=== PATIENT | male | born 1970 ===

== ENCOUNTER 2017-11-20 08:31 | Emergency (ER) | payer OTHER ==
[2017-11-20 08:43] VITALS: RESP 16
[2017-11-20] MEDS ORDERED: Sodium Chloride 0.9% 1,000 ML IV ONE (08:56)
--- NOTE | 2017-11-20 08:56 | C.PDOC ---
History Of Present Illness 47 yo male w/o significant PMHx come in for evaluation of left sided chest wall blunt injury sustained 2 weeks ago. Pt sts, " tried to slat pickler some bin from above and it sled and hit my left side". Pts ts, pain is localized, non- radiating and worse with movement. Pt sts, use OTC medication without improvement. Otherwise, pt denies head injury, headache, dizziness, neck pain, CP, SOB, dyspnea, palpitation, diaphoresis, abd. pain, N/V, back pain, denies any other active complaints. Ambulate to Ed for evaluation, not in any apparent distress. Time Seen by Provider: 11/20/17 08:34 Chief Complaint (Nursing): Rib Injury History Per: Patient Past Medical History Reviewed: Historical Data, Nursing Documentation, Vital Signs Vital Signs: Last Vital Signs Temp 97.9 F 11/20/17 12:26 Pulse 70 11/20/17 12:26 Resp 16 11/20/17 12:26 BP 155/84 H 11/20/17 12:26 Pulse Ox 97 11/20/17 12:26 - Medical History PMH: No Chronic Diseases Denies: CAD, Cardia Arrhythmia, Cardiac Aneurysm, CHF Surgical History: No Surg Hx Family History: States: No Known Family Hx - Social History Hx Tobacco Use: No Hx Alcohol Use: Yes Hx Substance Use: No - Immunization History Hx Tetanus Toxoid Vaccination: No Hx Influenza Vaccination: No Hx Pneumococcal Vaccination: No Review Of Systems Except As Marked, All Systems Reviewed And Found Negative. Constitutional: Negative for: Fever, Chills Eyes: Negative for: Vision Change ENT: Negative for: Throat Pain Cardiovascular: Positive for: Other (Left sided chest wall tenderness). Negative for: Chest Pain, Palpitations, Orthopnea, Edema, Light Headedness Respiratory: Negative for: Cough, Shortness of Breath, Wheezing Gastrointestinal: Negative for: Nausea, Vomiting, Abdominal Pain, Diarrhea Genitourinary: Negative for: Dysuria Musculoskeletal: Negative for: Neck Pain, Shoulder Pain, Back Pain Skin: Negative for: Rash Neurological: Negative for: Weakness, Numbness, Altered Mental Status, Headache , Dizziness Physical Exam - Physical Exam Appears: Well, Non-toxic, No Acute Distress Skin: Normal Color, Warm, Dry, No Rash Head: Normacephalic Eye(s): bilateral: PERRL Ear(s): Bilateral: Normal Nose: No Flaring Oral Mucosa: Moist Throat: No Erythema, No Drooling Neck: Normal ROM, Trachea Midline, Supple Chest: No Deformity, Tenderness (Left sided laetarl chest wall overlying 4-5 inercostal spaces. No palpable deformity, no skin changes.), No Ecchymosis, No Subcutaneous Emphysema Cardiovascular: Rhythm Regular, No Murmur, No JVD Respiratory: No Decreased Breath Sounds, No Accessory Muscle Use, No Stridor, No Wheezing Gastrointestinal/Abdominal: Soft, No Tenderness, No Distention, No Guarding, No Rebound Back: No CVA Tenderness Extremity: Normal ROM, No Pedal Edema, No Deformity, No Swelling Neurological/Psych: Oriented x3, Normal Speech ED Course And Treatment - Laboratory Results Result Diagrams: 11/20/17 09:14 11/20/17 09:14 Lab Interpretation: No Acute Changes ECG: Interpreted By Me, Viewed By Me ECG Rhythm: Sinus Rhythm Interpretation Of ECG: SR@69/min, LAD, incomplete RBBB, no acute T wave or ST-T changes. O2 Sat by Pulse Oximetry: 98 Pulse Ox Interpretation: Normal - Radiology CXR: Interpreted by Me, Viewed By Me CXR Interpretation: Yes: Other (Left sided lung scaring vs infiltrate?) - CT Scan/US CT chest Other Rad Studies (CT/US): Radiology Report Reviewed CT/US Interpretation: Creator : Rich Castro MD. Dictator : Cleaning Attendant : Flask Carrier : Rich Castro MD. Approver2 : Report Date : 11/20/2017 12: 34:01. My Comment : . PROCEDURE: CT Chest with contrast. HISTORY: Left sided chest pain. COMPARISON: None. TECHNIQUE: Contiguous axial images were obtained through the chest with intravenous contrast enhancement. Sagittal and coronal reconstructions were performed. IV contrast: 100 cc Visipaque 320 the the. Radiation dose (DLP): 381.69 mGy-cm. This CT exam was performed using one or more of the following dose reduction techniques: Automated exposure control, adjustment of the mA and/or kV according to patient size, and/or use of iterative reconstruction technique. FINDINGS: LUNGS: Biapical pleural thickening right more significant than the left. . These changes extend medially along the pleural surfaces of the mediastinum of the upper lobe with internal cystic changes that may represent cystic bronchiectasis . Scattered chronic scarring changes are present throughout this area pleural thickening and throughout the right upper lobe as well. There is also larger linear somewhat thickened area of chronic scarring of which extends from localized areas pleural thickening along the anterolateral and posteromedial of pleural surfaces. . . There are the numerous calcifications seen along the linear scar as well as scattered throughout the left upper lobe lung parenchyma. Findings are consistent with postinflammatory and likely prior exposure to granulomatous disease process. Minor linear scarring changes seen in the left lung base and lingular region. MEDIASTINUM: Heart size is within range normal. No significant pericardial effusion. Ascending thoracic aorta measures approximately 3.2 cm and descending thoracic aorta measures approximately 2.3 cm. Pulmonary trunk measures approximately 3.0 cm. There are several small nonspecific mediastinal lymph nodes. Evaluation for hilar adenopathy is somewhat limited due to the lack of circulating intravenous contrast material. There is a small hiatal hernia with wall thickening of the distal esophagus likely due to protrusion gastric mucosa. Possibility of esophagitis not excluded. The central airways midline and patent. No large central endoluminal lesions. PLEURA: Pleural thickening as above. No pleural fluid. No pneumothorax. BONES: Mild multilevel degenerative spondylosis of the thoracic spine. No evidence of acute fracture seen. Ribs appear intact. UPPER ABDOMEN: Grossly unremarkable. OTHER FINDINGS: None. IMPRESSION: There are chronic pleural thickening changes and scarring in both upper lobes with of localized area of cystic bronchiectasis of mini elbow bold. The scarring changes also contain numerous embedded small calcifications. There are also numerous tiny calcifications scattered throughout the remaining lung parenchyma upper lobes. Collectively these findings are consistent with postinflammatory sequela likely prior exposure to granulomatous disease process. No acute infiltrates or effusion. Progress Note: Pt was OBS in ED for 3 hours and remained stable. On re- eavluation., pt is afebrile, hemodynamicalys table. Non-toxic. PulseOx 98% RA. Head: AT/NC. Neck: SUpple, (-) JVD, (-) carotid bruits B/L. ENT: no acute findings. Lungs: CTA B/L, BS equal B/L. CVS: (+)S1S2, reg. ABd: benign , (-) guarding, (-) rebound. Neurologicaly intact. Imaging review and appears normal. EKG- no acute changes. Blood work- no acute findings, Troponin negative. PT has clinical finidngs c/w left sided chest wall tenderness. Pt advised. ref. to f/u with PMD In 2-3 days for re-eavl. return if any new changes. Disposition Counseled Patient/Family Regarding: Studies Performed, Diagnosis, Need For Followup, Rx Given - Disposition Referrals: [facility] [Outside] Disposition: HOME/ ROUTINE Disposition Time: 11:30 Condition: STABLE Additional Instructions: Light duty, avoid physical activity for 1 week Take medication as prescribed Follow up with PMD in 2-3 days for re-evaluation. return to ED if any worsening or new changes. Prescriptions: Ibuprofen [Motrin Tab] 600 mg PO Q6 #20 tab Methocarbamol [Robaxin] 500 mg PO TID #14 tab Instructions: Bruised Rib (DC) Forms: [employer] (Serbian) Print Language: KOREAN - Clinical Impression Clinical Impression: Chest wall injury
[2017-11-20] MEDS ORDERED: Sodium Chloride 0.9% 1,000 ML ONE (09:12)
[2017-11-20 09:18] LABS: BASO % 0.6 % (0.0-2.0); EOS # 0.2 K/uL (0.0-0.7); HEMOGLOBIN 14.6 g/dL (12.0-18.0); LYMPH # 1.7 K/uL (1.0-4.3); LYMPH % 34.8 % (20.0-40.0); MEAN CELL VOLUME 92.1 fL (80.0-94.0); MEAN CORPUSCULAR HEMOGLOBIN 31.9 pg (27.0-31.0); MEAN CORPUSCULAR HGB CONC 34.7 g/dL (33.0-37.0); MEAN PLATELET VOLUME 7.4 fL (7.2-11.7); MONO # 0.3 K/uL (0.0-0.8); MONO % 6.5 % (0.0-10.0); NEUT # 2.6 K/uL (1.8-7.0); NEUT % 54.1 % (50.0-75.0); RBC 4.58 Mil/uL (4.40-5.90); RED CELL DISTRIBUTION WIDTH 13.1 % (11.5-14.5); WHITE BLOOD COUNT 4.9 K/uL (4.8-10.8)
[2017-11-20 09:25] LABS: PROTHROMBIN TIME 10.4 SECONDS (9.7-12.2)
[2017-11-20 09:55] LABS: BLOOD UREA NITROGEN 10 mg/dL (9-20); CALCIUM 8.7 mg/dl (8.6-10.4); GFR AFRICAN-AMERICAN > 60; GFR NON-AFRICAN AMERICAN > 60
[2017-11-20] MEDS ORDERED: Iodixanol 320 MG/ML 100 ML BOTTLE IV ONE (10:06)
[2017-11-20 12:27] VITALS: BP 155/84; PULSE 70; TEMP 97.9
--- NOTE | 2017-11-20 12:35 | CT ---
PROCEDURE: CT Chest with contrast HISTORY: Left sided chest pain COMPARISON: None. TECHNIQUE: Contiguous axial images were obtained through the chest with intravenous contrast enhancement. Sagittal and coronal reconstructions were performed. IV contrast: 100 cc Visipaque 320 the the Radiation dose (DLP): 381.69 mGy-cm. This CT exam was performed using one or more of the following dose reduction techniques: Automated exposure control, adjustment of the mA and/or kV according to patient size, and/or use of iterative reconstruction technique. FINDINGS: LUNGS: Biapical pleural thickening right more significant than the left. . These changes extend medially along the pleural surfaces of the mediastinum of the upper lobe with internal cystic changes that may represent cystic bronchiectasis . Scattered chronic scarring changes are present throughout this area pleural thickening and throughout the right upper lobe as well. There is also larger linear somewhat thickened area of chronic scarring of which extends from localized areas pleural thickening along the anterolateral and posteromedial of pleural surfaces. . . There are the numerous calcifications seen along the linear scar as well as scattered throughout the left upper lobe lung parenchyma. Findings are consistent with postinflammatory and likely prior exposure to granulomatous disease process. Minor linear scarring changes seen in the left lung base and lingular region. MEDIASTINUM: Heart size is within range normal. No significant pericardial effusion. Ascending thoracic aorta measures approximately 3.2 cm and descending thoracic aorta measures approximately 2.3 cm. Pulmonary trunk measures approximately 3.0 cm. There are several small nonspecific mediastinal lymph nodes. Evaluation for hilar adenopathy is somewhat limited due to the lack of circulating intravenous contrast material. There is a small hiatal hernia with wall thickening of the distal esophagus likely due to protrusion gastric mucosa. Possibility of esophagitis not excluded. The central airways midline and patent. No large central endoluminal lesions. PLEURA: Pleural thickening as above. No pleural fluid. No pneumothorax. BONES: Mild multilevel degenerative spondylosis of the thoracic spine. No evidence of acute fracture seen. Ribs appear intact. UPPER ABDOMEN: Grossly unremarkable. OTHER FINDINGS: None. IMPRESSION: There are chronic pleural thickening changes and scarring in both upper lobes with of localized area of cystic bronchiectasis of mini elbow bold. The scarring changes also contain numerous embedded small calcifications. There are also numerous tiny calcifications scattered throughout the remaining lung parenchyma upper lobes. Collectively these findings are consistent with postinflammatory sequela likely prior exposure to granulomatous disease process. No acute infiltrates or effusion.
--- NOTE | 2017-11-20 13:21 | RAD ---
PROCEDURE: Radiographs of the Chest and Left Ribs. HISTORY: injury COMPARISON: None available. TECHNIQUE: Frontal radiograph of the chest and multiple oblique radiographs of the left ribs were obtained. FINDINGS: LEFT RIBS: No fracture or focal lesion visualized. LUNGS: Biapical pleural thickening with biapical and upper lobe scarring changes left more conspicuous than the right. PLEURA: As above. No evidence of pleural effusion or pneumothorax CARDIOVASCULAR: Normal sized heart. No pulmonary vascular congestion. OTHER FINDINGS: None. IMPRESSION: No evidence of acute left-sided rib fracture. Biapical pleural thickening and parenchymal scarring changes. . Rule out prior exposure to a granulomatous disease process. No evidence of pneumothorax.
[2017-11-20 18:25] VITALS: O2SAT 98
--- NOTE | 2017-11-22 23:34 | CARD ---
APPROVED REPORT EKG Measurement Heart [id number] <Conclusion> Normal sinus rhythm Left axis deviation Incomplete right bundle branch block Abnormal ECG
== END 2017-11-20 12:26 | disposition home or self-care (01) ==
LOC: C.ER 08:31
DX: S29.9XXA Unspecified injury of thorax, initial encounter (principal); W22.8XXA Striking against or struck by other objects, initial encounter
CPT/HCPCS: 71101; 71260; 80048; 84484; 85025; 85610; 85730; 93005; 96361; 96374; 99285; J1885; J7030; Q9967

== ENCOUNTER 2018-05-10 13:27 | Emergency (ER) | payer OTHER ==
[2018-05-10 13:44] VITALS: RESP 18
--- NOTE | 2018-05-10 14:48 | C.PDOC ---
History Of Present Illness CC: Left leg pain Patient is a 47 year old male with no past medical history, who presents to the ED with complaints of left leg pain that started last week after he slipped while crossing the street. Patient denied any trauma, bleeding, tearing or popping sensation at the time. Patient states that he has been using motrin and ice packs, which has been helping. However, patient has noted increase muscle soreness that is localized to his calf and posterior thigh. Patient denies any other complaints. <Kitty Linares E - Last Filed: 05/10/18 14:48> History Per: Patient History/Exam Limitations: no limitations Onset/Duration Of Symptoms: Days Current Symptoms Are (Timing): Still Present Severity: Mild Pain Scale Rating Of: 3 Recent travel outside of the [place]: No - Hip Description Of Injury: Lost Balance - Knee Description Of Injury: Other Alleviating Factor(s): Ice Therapy, OTC Pain Medication <Kitty Linares - Last Filed: 05/10/18 14:48> <Eder Forbes - Last Filed: 05/10/18 15:07> Time Seen by Provider: 05/10/18 14:13 Chief Complaint (Nursing): Lower Extremity Problem/Injury Past Medical History Vital Signs: Last Vital Signs Temp 98.5 F 05/10/18 13:38 Pulse 60 05/10/18 13:38 Resp 18 05/10/18 13:38 BP 160/96 H 05/10/18 13:38 Pulse Ox 98 05/10/18 13:38 - Medical History PMH: Denies: CAD, Cardia Arrhythmia, Cardiac Aneurysm, CHF Surgical History: No Surg Hx Family History: States: Unknown Family Hx - Social History Hx Tobacco Use: No Hx Alcohol Use: Yes Hx Substance Use: No - Immunization History Hx Tetanus Toxoid Vaccination: No Hx Influenza Vaccination: No Hx Pneumococcal Vaccination: No <Kitty Linares - Last Filed: 05/10/18 14:48> Vital Signs: Last Vital Signs Temp 98.5 F 05/10/18 13:38 Pulse 60 05/10/18 13:38 Resp 18 05/10/18 13:38 BP 160/96 H 05/10/18 13:38 Pulse Ox 98 05/10/18 15:06 <Eder Forbes - Last Filed: 05/10/18 15:07> Review Of Systems Constitutional: Negative for: Fever, Chills, Weakness, Malaise Eyes: Negative for: Pain Cardiovascular: Negative for: Chest Pain, Palpitations Respiratory: Negative for: Shortness of Breath Gastrointestinal: Negative for: Nausea, Vomiting, Abdominal Pain Skin: Negative for: Rash Neurological: Negative for: Confusion, Altered Mental Status, Headache <Kitty Linares E - Last Filed: 05/10/18 14:48> Physical Exam - Physical Exam Appears: Well Skin: Normal Color Head: Atraumatic, Normacephalic Eye(s): bilateral: Normal Inspection, EOMI Cardiovascular: Rhythm Regular Respiratory: Normal Breath Sounds, No Rales, No Wheezing Gastrointestinal/Abdominal: Normal Exam, Bowel Sounds, Soft, No Tenderness, No Organomegaly, No Mass, No Distention Extremity: Bilateral: Atraumatic, Normal Color And Temperature, Normal ROM Neurological/Psych: Oriented x3, Normal Speech, Normal Cognition, Normal Motor, Normal Sensation <Kitty Linares E - Last Filed: 05/10/18 14:48> ED Course And Treatment O2 Sat by Pulse Oximetry: 98 <Kitty Linares E - Last Filed: 05/10/18 14:48> Medical Decision Making Medical Decision Making: Muscle Sprain - Continue with OTC motrin and ice pack - Rest, Elevate, Stretch, ice pack and bengay application <Kitty Linares E - Last Filed: 05/10/18 14:48> Medical Decision Making: Seen and examined with resident. 47 y/o M p/w L lower leg pain after trip last week. On exam, no bony tenderness, no calf tenderness, no edema. <Eder Forbes - Last Filed: 05/10/18 15:07> Disposition Discussed With : Eder Forbes Doctor Will See Patient In The: ED - Disposition Disposition Time: 14:48 <Kitty Linraes - Last Filed: 05/10/18 14:48> <Eder Forbes - Last Filed: 05/10/18 15:07> - Disposition Referrals: [facility] [Provider Group] Cosme Brown III, MD [Staff Provider] - Disposition: HOME/ ROUTINE Condition: GOOD Additional Instructions: Please continue with OTC Motrin for pain control Please continue with cold compresses every 30 minutes and apply OTC bengay cream Please rest, elevate and stretch your left leg Please follow up with [facility] in 1-2 weeks for follow up and in order to establish health care Please return to the hospital if symptoms persist Please take care Instructions: Muscle Strain (DC) Forms: [facility] (Indonesian) - Clinical Impression Clinical Impression: Muscle strain
[2018-05-10 15:15] VITALS: BP 156/98; PULSE 65; TEMP 98.6; O2SAT 99
== END 2018-05-10 15:13 | disposition home or self-care (01) ==
LOC: C.ER 13:27
DX: S86.912A Strain of unspecified muscle(s) and tendon(s) at lower leg level, left leg, initial encounter (principal); W01.0XXA Fall on same level from slipping, tripping and stumbling without subsequent striking against object, initial encounter; Y92.410 Unspecified street and highway as the place of occurrence of the external cause

== ENCOUNTER 2018-07-03 12:53 | Emergency (ER) | payer OTHER ==
[2018-07-03 13:09] VITALS: TEMP 98.3
[2018-07-03 13:54] LABS: URINE BILIRUBIN NEGATIVE (NEGATIVE); URINE BLOOD 1+ (NEGATIVE); URINE CLARITY Clear (Clear); URINE COLOR Yellow (YELLOW); URINE GLUCOSE (UA) NORMAL (Normal); URINE LEUKOCYTE ESTERASE NEG Leu/uL (Negative); URINE PROTEIN NEGATIVE (NEGATIVE); URINE UROBILINOGEN NORMAL mg/dL (0.2-1.0)
--- NOTE | 2018-07-03 14:03 | C.PDOC ---
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 Patient reports he did not use protection but partner wasnt new. He states this has never happened before. Denies fever, chills, dysuria, hematuria, or discharge. Time Seen by Provider: 07/03/18 13:26 Chief Complaint (Nursing): Male Genitourinary History Per: Patient, Chicken Boner History/Exam Limitations: no limitations Onset/Duration Of Symptoms: Days Current Symptoms Are (Timing): Still Present Past Medical History Reviewed: Historical Data, Nursing Documentation, Vital Signs Vital Signs: Last Vital Signs Temp 98.3 F 07/03/18 13:07 Pulse 82 07/03/18 13:07 Resp 18 07/03/18 13:07 BP 147/86 07/03/18 13:07 Pulse Ox 99 07/03/18 13:07 - Medical History PMH: Denies: CAD, Cardia Arrhythmia, Cardiac Aneurysm, CHF Family History: States: No Known Family Hx - Social History Hx Tobacco Use: No Hx Alcohol Use: Yes Hx Substance Use: No - Immunization History Hx Tetanus Toxoid Vaccination: No Hx Influenza Vaccination: No Hx Pneumococcal Vaccination: No Review Of Systems Except As Marked, All Systems Reviewed And Found Negative. Constitutional: Negative for: Fever, Chills Genitourinary: Positive for: Other (Foreskin pain and swelling). Negative for: Dysuria, Penile Discharge Physical Exam - Physical Exam Appears: Non-toxic, No Acute Distress Skin: Warm, Dry Head: Atraumatic, Normacephalic Eye(s): bilateral: Normal Inspection Oral Mucosa: Moist Neck: Supple Male Genital: No Testicular Swelling, No Scrotal Swelling, Other (Foreskin swelling, mostly inferior aspect, no phimosis/paraphimosis) Neurological/Psych: Oriented x3, Normal Speech ED Course And Treatment - Laboratory Results Lab Results: Urine Color Yellow (YELLOW) 07/03/18 13:39 Urine Clarity Clear (Clear) 07/03/18 13:39 Urine pH 5.0 (5.0-8.0) 07/03/18 13:39 Ur Specific [place] 1.017 (1.003-1.030) 07/03/18 13:39 Urine Protein Negative mg/dL (NEGATIVE) 07/03/18 13:39 Urine Glucose (UA) Normal mg/dL (Normal) 07/03/18 13:39 Urine Ketones Negative mg/dL (NEGATIVE) 07/03/18 13:39 Urine Blood 1+ (NEGATIVE) H 07/03/18 13:39 Urine Nitrate Negative (NEGATIVE) 07/03/18 13:39 Urine Bilirubin Negative (NEGATIVE) 07/03/18 13:39 Urine Urobilinogen Normal mg/dL (0.2-1.0) 07/03/18 13:39 Ur Leukocyte Esterase Neg Ezio/uL (Negative) 07/03/18 13:39 Urine WBC (Auto) 1 /hpf (0-5) 07/03/18 13:39 Urine RBC (Auto) 1 /hpf (0-3) 07/03/18 13:39 O2 Sat by Pulse Oximetry: 99 (RA) Pulse Ox Interpretation: Normal Progress Note: Labs and urine ordered. Patient tested for GC/chlamydia. Rocephin IM and zithromax PO administered. Patient will be discharged home on Keflex and was advised to follow up with urologist. Disposition - Disposition Referrals: Cecilio Felton Jr., MD [Staff Provider] - Disposition: HOME/ ROUTINE Disposition Time: 14:38 Condition: STABLE Additional Instructions: Follow up with Urologist within 1-2 days. Return to ED if feel worse. 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 - Scribe Statement The provider has reviewed the documentation as recorded by the Scribe Nayeli Patel All medical record entries made by the Haoibe were at my direction and personally dictated by me. I have reviewed the chart and agree that the record accurately reflects my personal performance of the history, physical exam, medical decision making, and the department course for this patient. I have also personally directed, reviewed, and agree with the discharge instructions and disposition.
[2018-07-03] MEDS ORDERED: cefTRIAXone (Rocephin) 250 mg Inj IM STA (14:06)
[2018-07-03 14:51] VITALS: BP 135/75; PULSE 83; RESP 16
[2018-07-03 21:33] VITALS: O2SAT 99
== END 2018-07-03 14:50 | disposition home or self-care (01) ==
LOC: C.ER 12:53
DX: N48.1 Balanitis (principal)
CPT/HCPCS: 81001; 82948; 87491; 87591; 96372; 99283; J0696